=== PATIENT | female | born 1985 | race Caucasian/White ===

== ENCOUNTER 2017-04-13 23:07 | Emergency (ER) | payer SELFPAY ==
--- NOTE | 2017-04-14 00:34 | ED.PDOC ---
History of Present Illness - General Chief Complaint: General Stated Complaint: achy all over, N/V yesterday Time Seen by Provider: 04/14/17 00:32 - History of Present Illness Initial Comments: Gretchen Alegre 31 y/o female stated that she had been achy all over ,no fever , chills,N/V,or any strenous physical activity,no cough,no SOB.Amenorrheic since e 01/2017 Timing/Duration: intermittent, other - 2 days ago Severity: moderate Improving Factors: nothing Worsening Factors: nothing Associated Symptoms: denies symptoms Allergies/Adverse Reactions: Allergies NO KNOWN ALLERGY Allergy (Verified 04/13/17 23:41) Home Medications: Ambulatory Orders Ibuprofen [Motrin Tab] 600 mg PO TID PRN #15 tab 12/19/15 Cephalexin [Keflex] 500 mg PO Q6HR #30 cap 01/18/16 Review of Systems - Review of Systems Constitutional: States: see HPI, other - body aches EENTM: States: no symptoms reported Respiratory: States: no symptoms reported Cardiology: States: no symptoms reported Gastrointestinal/Abdominal: States: no symptoms reported Genitourinary: States: no symptoms reported Musculoskeletal: States: no symptoms reported Past Medical History (General) - Patient Medical History Hx Seizures: No Hx Stroke: No Hx Dementia: No Hx Asthma: No Hx of COPD: No Hx Cardiac Disorders: No Hx Congestive Heart Failure: No Hx Pacemaker: No Hx Hypertension: No Hx Thyroid Disease: No Hx Diabetes: No Hx Gastroesophageal Reflux: No Hx Renal Disease: No Hx Cancer: No Hx of HIV: No Hx Hepatitis C: No Hx MRSA: No Surgical History: no surgical history - Vaccination History Hx Tetanus, Diphtheria Vaccination: Yes Hx Influenza Vaccination: Yes Hx Pneumococcal Vaccination: No Immunizations Up to Date: Yes - Social History Hx Tobacco Use: Yes Hx Chewing Tobacco Use: No Hx Alcohol Use: No Hx Substance Use: No Hx Substance Use Treatment: No Hx Depression: Yes Feels Threatened In Home Enviroment: No Feels Threatened In a Relationship: No Hx Physical Abuse: No Hx Emotional Abuse: No Hx Suspected Abuse: No - Female History Patient is a Female of Child Bearing Age (10 -59 yrs old): Yes Patient : - possible Family Medical History - Family History Mother Family History: No Known Hx Family Cancer: Yes - mom-ovarian Physical Exam - Physical Exam General Appearance: Alert, No apparent distress Eye Exam: bilateral normal Ears, Nose, Throat: hearing grossly normal, normal ENT inspection, normal pharynx Neck: non-tender, full range of motion, supple Respiratory: chest non-tender, lungs clear, normal breath sounds Cardiovascular/Chest: normal peripheral pulses, regular rate, rhythm, no murmur Gastrointestinal/Abdominal: normal bowel sounds, non tender, soft Back Exam: normal inspection, no CVA tenderness, no vertebral tenderness Extremity: non-tender, no pedal edema, no calf tenderness Neurologic: alert, normal mood/affect, oriented x 3 Skin Exam: normal color, warm/dry Lymphatic: no adenopathy Progress - Progress Progress: 04/14/17 01:12 Vital Signs - 8 hr 04/13/17 23:25 Temperature 98.2 F Pulse Rate [ 102 H monitor] Respiratory 16 Rate Blood Pressure 118/84 [Left Arm] O2 Sat by Pulse 96 Oximetry Laboratory Tests 04/14/17 04/14/17 00:53 00:53 Urine Color Yellow Urine Appearance Clear Urine pH 6.0 Ur Specific [place] 1.015 Urine Protein Negative Urine Glucose (UA) Negative Urine Ketones Negative Urine Blood Moderate H Urine Nitrite Negative Urine Bilirubin Negative Urine Urobilinogen 0.2 Ur Leukocyte Esterase Trace H Urine RBC 1-3 Urine WBC 3-5 H Ur Epithelial Cells 3-5 Urine Bacteria Rare Urine HCG, Qual Negative Departure - Departure Clinical Impression: Body aches, Amenorrhea, unspecified Time of Disposition: 01:13 Disposition: Discharge to Home or Self Care Condition: Good Departure Forms: ED Discharge - Pt. Copy, Patient Portal Self Enrollment Diet: other - increase oral fluid intake Referrals: Reynaldo Estrella MD [Primary Care Provider] - 1-2 Weeks Home Medications: Ambulatory Orders Ibuprofen [Motrin Tab] 600 mg PO TID PRN #15 tab 12/19/15 Cephalexin [Keflex] 500 mg PO Q6HR #30 cap 01/18/16 Additional Instructions: FOLLOW UP WITH PRIMARY MD o04/13/2017 as needed call for appointment;Aleve(otc) one tablet 3 x a day for pain as needed
[2017-04-14] MEDS ORDERED: KETOROLAC TROMETHAMINE INJ 60 MG/2 ML VIAL IM ONE (01:16)
[2017-04-14 01:38] VITALS: BP 122/84; TEMP 98.4; O2SAT 98
== END 2017-04-14 01:40 | disposition home or self-care (01) ==
LOC: ER 23:07
DX: N91.2 Amenorrhea, unspecified (principal); R52 Pain, unspecified; Z87.891 Personal history of nicotine dependence
CPT/HCPCS: 81001; 81025; J1885

== ENCOUNTER 2019-04-28 11:30 | Emergency (ER) | payer OTHER ==
--- NOTE | 2019-04-28 12:37 | ED.PDOC ---
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 She says that she went to the restroom and had some "spotting". She has urinated since then without spotting. She is feeling movement. Her first miscarrried at 4 weeks. No other complaints. Timing/Duration: 4-6 hours Severity: mild Improving Factors: nothing Worsening Factors: nothing Associated Symptoms: denies symptoms Allergies/Adverse Reactions: Allergies NO KNOWN ALLERGY Allergy (Verified 04/13/17 23:41) Home Medications: Ambulatory Orders Vit W/ Ferrous Fumara [] 1 tab PO DAILY 04/28/19 Review of Systems - Review of Systems Constitutional: States: no symptoms reported EENTM: States: no symptoms reported Respiratory: States: no symptoms reported Cardiology: States: no symptoms reported Gastrointestinal/Abdominal: States: no symptoms reported Genitourinary: States: see HPI Musculoskeletal: States: no symptoms reported Skin: States: no symptoms reported Neurological: States: no symptoms reported Endocrine: States: no symptoms reported Hematologic/Lymphatic: States: no symptoms reported Past Medical History (General) - Patient Medical History Hx Seizures: No Hx Stroke: No Hx Dementia: No Hx Asthma: No Hx of COPD: No Hx Cardiac Disorders: No Hx Congestive Heart Failure: No Hx Pacemaker: No Hx Hypertension: No Hx Thyroid Disease: No Hx Diabetes: No Hx Gastroesophageal Reflux: No Hx Renal Disease: No Hx Cancer: No Hx of HIV: No Hx Hepatitis C: No Hx MRSA: No - Vaccination History Hx Tetanus, Diphtheria Vaccination: Yes Hx Influenza Vaccination: No Hx Pneumococcal Vaccination: No - Social History Hx Tobacco Use: Yes Hx Chewing Tobacco Use: No Hx Alcohol Use: No Hx Substance Use: No Hx Substance Use Treatment: No Hx Depression: Yes Hx Physical Abuse: No Hx Emotional Abuse: No Hx Suspected Abuse: No - Female History Patient is a Female of Child Bearing Age (10 -59 yrs old): Yes Patient : Yes Expected Date of Delivery:: 09/11/19 Family Medical History - Family History Mother Family History: No Known Hx Family Cancer: Yes - mom-ovarian Physical Exam - Physical Exam General Appearance: Alert Respiratory: lungs clear, normal breath sounds Cardiovascular/Chest: normal peripheral pulses, regular rate, rhythm Gastrointestinal/Abdominal: normal bowel sounds, non tender, soft, other - gravid, FHTs 140s Back Exam: no CVA tenderness Progress - Progress Progress: 04/28/19 13:01 UA negative. Blood type A+. I spoke with her taproom attendant, Dr. Reynoso, and it was agreed that she could go home and follow up with him next week. Return to E.R. for increased bleeding or pain. Care instructions given. E.R. warnings given. Questions were elicited and answered. Patient voiced understanding and agreement with the plan. Departure - Departure Clinical Impression: Vaginal discharge Disposition: Discharge to Home or Self Care Condition: Good Departure Forms: ED Discharge - Pt. Copy, Patient Portal Self Enrollment Diet: resume usual diet Activity: other - as per your regular doctor Referrals: Tyron Marquez MD [Primary Care Provider] - 1-2 Weeks Home Medications: Ambulatory Orders Vit W/ Ferrous Fumara [] 1 tab PO DAILY 04/28/19 Additional Instructions: Return to the E.R. for vaginal bleeding or abdominal or pelvic pain. See Dr. Marquez this week. Call him on Tuesday.
[2019-04-28 13:14] VITALS: BP 111/75; TEMP 98.6; O2SAT 97
== END 2019-04-28 13:16 | disposition home or self-care (01) ==
LOC: ER 11:30
DX: O26.892 Other specified pregnancy related conditions, second trimester (principal); N89.8 Other specified noninflammatory disorders of vagina; O09.292 Supervision of pregnancy with other poor reproductive or obstetric history, second trimester; O99.342 Other mental disorders complicating pregnancy, second trimester; F32.9 Major depressive disorder, single episode, unspecified; Z87.891 Personal history of nicotine dependence; Z3A.00 Weeks of gestation of pregnancy not specified